=== PATIENT | male | born 1930 | race Caucasian/White ===

== ENCOUNTER 2019-03-02 17:14 | Inpatient (IN) | payer MEDICARE ==
[2019-03-02] VITALS (9 sets, daily range): BP systolic 143–174; BP diastolic 80–89
[~2019-03-02] VITALS: Ht 177.8 cm; Wt 87.2 kg
--- NOTE | 2019-03-02 18:18 | PHYS DOC ---
Past Medical History Past Medical History: A-Fib, High Cholesterol, Hypertension (CARMEN SALAZAR APRN) Past Surgical History: Other Additional Past Surgical Histo: PACEMAKER (CARMEN SALAZAR APRN) Alcohol Use: Occasionally Drug Use: None (CARMEN SALAZAR APRN) Adult General Chief Complaint Chief Complaint: ABNORMAL LABS HPI HPI Patient is a 88 year old male who was sent from his doctor's office for abnormal labs. The patient states that his hemoglobin was 6.4. Patient has been feeling dizzy, and weak over the last several days. He also states she's been having bright red blood in his stool over the last several weeks. Denies any pain at this time. Patient's states that October his hemoglobin is 12.2. The patient is on Eliquis. (CARMEN SALAZAR APRN) Review of Systems Review of Systems Constitutional: Denies fever or chills [] Eyes: Denies change in visual acuity, redness, or eye pain [] HENT: Denies nasal congestion or sore throat [] Respiratory: Denies cough or shortness of breath [] Cardiovascular: No additional information not addressed in HPI [] GI: Reports bloody stools, Denies abdominal pain, nausea, vomiting, or diarrhea [] : Denies dysuria or hematuria [] Musculoskeletal: Denies back pain or joint pain [] Integument: Denies rash or skin lesions [] Neurologic: Denies headache, focal weakness or sensory changes [] Endocrine: Denies polyuria or polydipsia [] Complete systems were reviewed and found to be within normal limits, except as documented in this note. (CARMEN SALAZAR APRN) Current Medications Current Medications Current Medications Medications (Trade) Dose Ordered Sig/Luke Start Time Stop Time Status Last Admin Dose Admin Acetaminophen (Tylenol) 500 mg PRN Q6HRS PRN 03/02/19 19:30 Fentanyl Citrate (Fentanyl 2ml Vial) 50 mcg PRN Q1HR PRN 03/02/19 19:30 03/03/19 19:29 Iohexol (Omnipaque 300 Mg/ml) 75 ml 1X ONCE 03/02/19 19:00 03/02/19 19:01 DC 03/02/19 19:18 75 ML Ondansetron HCl (Zofran) 4 mg PRN Q6HRS PRN 03/02/19 19:30 Pantoprazole Sodium (PROTONIX VIAL for IV PUSH) 40 mg 1X ONCE 03/02/19 19:00 03/02/19 19:01 DC 03/02/19 19:39 40 MG Sodium Chloride 1,000 ml @ 75 mls/hr [id number] 03/02/19 19:45 Temazepam (Restoril) 7.5 mg PRN QHS PRN 03/02/19 19:30 (CARMEN NAM DO) Allergies Allergies Allergies Coded Allergies Type Severity Reaction Last Updated Verified No Known Drug Allergies 03/02/19 No (CARMEN NAM DO) Physical Exam Physical Exam Constitutional: Well developed, well nourished, no acute distress, non-toxic appearance. [] HENT: Normocephalic, atraumatic, bilateral external ears normal, oropharynx moist, no oral exudates, nose normal. [] Eyes: PERRLA, EOMI, conjunctiva normal, no discharge. [] Neck: Normal range of motion, no tenderness, supple, no stridor. [] Cardiovascular:Heart rate regular rhythm, no murmur [] Lungs & Thorax: Bilateral breath sounds clear to auscultation [] Abdomen: Bowel sounds normal, soft, mild tenderness, no masses, no pulsatile ma sses. [] Skin: Warm, dry, no erythema, no rash. [] Back: No tenderness, no CVA tenderness. [] Extremities: No tenderness, no cyanosis, no clubbing, ROM intact, no edema. [] Neurologic: Alert and oriented X 3, normal motor function, normal sensory function, no focal deficits noted. [] Psychologic: Affect normal, judgement normal, mood normal. [] Rectal Exam was performed, no hemorrhoids noted. No shahab blood noted. Fecal occult blood sample sent to lab. (CARMEN SALAZAR APRN) Current Patient Data Vital Signs Vital Signs Date Time Temp Pulse Resp B/P (MAP) Pulse Ox O2 Delivery O2 Flow Rate FiO2 03/02/19 18:27 60 176/81 (112) 100 Room Air 03/02/19 17:25 98.5 16 98.5 (CARMEN NAM DO) Lab Values Laboratory Tests Test 03/02/19 17:55 03/02/19 18:20 White Blood Count 6.1 x10^3/uL (4.0-11.0) Red Blood Count 2.74 x10^6/uL (4.30-5.70) L Hemoglobin 6.4 g/dL (13.0-17.5) *L Hematocrit 20.1 % (39.0-53.0) *L Mean Corpuscular Volume 73 fL (79-100) L Mean Corpuscular Hemoglobin 23 pg (25-35) L Mean Corpuscular Hemoglobin Concent 32 g/dL (31-37) Red Cell Distribution Width 20.4 % (11.5-14.5) H Platelet Count 254 x10^3/uL (140-400) Neutrophils (%) (Auto) 74 % (31-73) H Lymphocytes (%) (Auto) 11 % (24-48) L Monocytes (%) (Auto) 14 % (0-9) H Eosinophils (%) (Auto) 1 % (0-3) Basophils (%) (Auto) 0 % (0-3) Neutrophils # (Auto) 4.5 x10^3/uL (1.8-7.7) Lymphocytes # (Auto) 0.7 x10^3/uL (1.0-4.8) L Monocytes # (Auto) 0.9 x10^3/uL (0.0-1.1) Eosinophils # (Auto) 0.0 x10^3/uL (0.0-0.7) Basophils # (Auto) 0.0 x10^3/uL (0.0-0.2) Platelet Estimate Adequate (ADEQUATE) Hypochromasia Slight Poikilocytosis Slight Microcytosis Mod Macrocytosis Slight Spherocytes Few Target Cells Occ Ovalocytes Occ Rouleaux Present Sodium Level 130 mmol/L (136-145) L Potassium Level 4.3 mmol/L (3.5-5.1) Chloride Level 95 mmol/L (98-107) L Carbon Dioxide Level 26 mmol/L (21-32) Anion Gap 9 (6-14) Blood Urea Nitrogen 23 mg/dL (8-26) Creatinine 1.0 mg/dL (0.7-1.3) Estimated GFR (Cockcroft-Gault) 70.8 BUN/Creatinine Ratio 23 (6-20) H Glucose Level 112 mg/dL (70-99) H Calcium Level 8.7 mg/dL (8.5-10.1) Total Bilirubin 0.5 mg/dL (0.2-1.0) Aspartate Amino Transferase (AST) 12 U/L (15-37) L Alanine Aminotransferase (ALT) 19 U/L (16-63) Alkaline Phosphatase 60 U/L (46-116) Troponin I Quantitative < 0.017 ng/mL (0.000-0.055) Total Protein 6.1 g/dL (6.4-8.2) L Albumin 3.4 g/dL (3.4-5.0) Albumin/Globulin Ratio 1.3 (1.0-1.7) Stool Occult Blood Positive (NEG) Laboratory Tests 03/02/19 17:55 Laboratory Tests 03/02/19 17:55 (CARMEN NAM DO) Lab Values Laboratory Tests Test 03/02/19 17:55 03/02/19 18:20 White Blood Count 6.1 x10^3/uL (4.0-11.0) Red Blood Count 2.74 x10^6/uL (4.30-5.70) L Hemoglobin 6.4 g/dL (13.0-17.5) *L Hematocrit 20.1 % (39.0-53.0) *L Mean Corpuscular Volume 73 fL (79-100) L Mean Corpuscular Hemoglobin 23 pg (25-35) L Mean Corpuscular Hemoglobin Concent 32 g/dL (31-37) Red Cell Distribution Width 20.4 % (11.5-14.5) H Platelet Count 254 x10^3/uL (140-400) Neutrophils (%) (Auto) 74 % (31-73) H Lymphocytes (%) (Auto) 11 % (24-48) L Monocytes (%) (Auto) 14 % (0-9) H Eosinophils (%) (Auto) 1 % (0-3) Basophils (%) (Auto) 0 % (0-3) Neutrophils # (Auto) 4.5 x10^3/uL (1.8-7.7) Lymphocytes # (Auto) 0.7 x10^3/uL (1.0-4.8) L Monocytes # (Auto) 0.9 x10^3/uL (0.0-1.1) Eosinophils # (Auto) 0.0 x10^3/uL (0.0-0.7) Basophils # (Auto) 0.0 x10^3/uL (0.0-0.2) Platelet Estimate Adequate (ADEQUATE) Hypochromasia Slight Poikilocytosis Slight Microcytosis Mod Macrocytosis Slight Spherocytes Few Target Cells Occ Ovalocytes Occ Rouleaux Present Sodium Level 130 mmol/L (136-145) L Potassium Level 4.3 mmol/L (3.5-5.1) Chloride Level 95 mmol/L (98-107) L Carbon Dioxide Level 26 mmol/L (21-32) Anion Gap 9 (6-14) Blood Urea Nitrogen 23 mg/dL (8-26) Creatinine 1.0 mg/dL (0.7-1.3) Estimated GFR (Cockcroft-Gault) 70.8 BUN/Creatinine Ratio 23 (6-20) H Glucose Level 112 mg/dL (70-99) H Calcium Level 8.7 mg/dL (8.5-10.1) Total Bilirubin 0.5 mg/dL (0.2-1.0) Aspartate Amino Transferase (AST) 12 U/L (15-37) L Alanine Aminotransferase (ALT) 19 U/L (16-63) Alkaline Phosphatase 60 U/L (46-116) Troponin I Quantitative < 0.017 ng/mL (0.000-0.055) Total Protein 6.1 g/dL (6.4-8.2) L Albumin 3.4 g/dL (3.4-5.0) Albumin/Globulin Ratio 1.3 (1.0-1.7) Stool Occult Blood Positive (NEG) Laboratory Tests 03/02/19 17:55 Laboratory Tests 03/02/19 17:55 (CARMEN SALAZAR APRN) EKG EKG [] (CARMEN SALAZAR APRN) Radiology/Procedures Radiology/Procedures []PATIENT: ISAIAS HELLERUNT: [id number]#: [id number] : 1930 LOCATION: ER AGE: 88 SEX: M EXAM STATUS: REG ER ORD. PHYSICIAN: CARMEN SALAZAR APRN REASON: rectal bleeding, abd pain PROCEDURE: CT ABD PELV W/ IV CONTRST ONLY CT SCAN OF THE ABDOMEN AND PELVIS WITH IV CONTRAST. History: Rectal bleeding Comparison:None. Procedure: Contiguous axial images of the abdomen and pelvis were performed after the administration of 75 cc of Omni 350 IV contrast and without oral contrast. CT Abdomen with contrast: Findings: There is calcification the hahn of the aorta and great vessels. 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 The sigmoid colon is redundant and there is a 6 mL length of moderate wall thickening of the proximal sigmoid colon level the mid abdomen anteriorly on the right. There is mild pleural effusions with adjacent infiltrates in the lung bases. Liver: There are a few cysts scattered throughout the liver Spleen: Unremarkable Pancreas: Unremarkable Adrenal Glands: Unremarkable Kidneys: Unremarkable There is no mass or lymphadenopathy. There is no free air. There is no free fluid. Impression: No acute findings. End Impression CT Pelvis with Contrast: Findings: The appendix is normal. The urinary bladder appears normal. There is no free fluid. There is no lymphadenopathy. Impression: 1. 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 2. Mild pleural effusions in the lung bases. 3. 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 PQRS Compliance Statement: One or more of the following individualized dose reduction techniques were utilized for this examination: 1. Automated exposure control 2. Adjustment of the mA and/or kV according to patient size 3. Use of iterative reconstruction technique Electronically signed by: Matt Cunningham III, MD (03/02/2019 7:31 PM) [facility] DICTATED and SIGNED BY: MATT CUNNINGHAM III, MD DATE: 03/02/191930 (CARMEN SALAZAR APRN) Course & Med Decision Making Course & Med Decision Making Pertinent Labs and Imaging studies reviewed. (See chart for details) Will gets labs, CT, rectal exam, and send a type and screen. Hemoglobin was 6.4 will order 1 unit of PRBC's. Discussed patient with Dr. Rodriguez who will admit patient (19:25). (CARMEN SALAZAR APRN) Dragon Disclaimer Dragon Disclaimer This electronic medical record was generated, in whole or in part, using a voice recognition dictation system. (CARMEN SALAZAR APRN) Departure Departure Impression: Primary Impression: Anemia Additional Impression: GI bleed Disposition: ADMITTED INPATIENT Admitting Physician: GINA (CARMEN SALAZAR APRN) Condition: GOOD Referrals: CRYSTAL MARINELLI MD (PCP) Attending Signature Attending Signature I have reviewed the PA/JEWEL HOLE DRILLER's note and plan of care. I was available for consultation as needed during the patient's visit in the emergency department. I agree with the clinical impression, plan, and disposition. (CARMEN NAM DO) Problem Qualifiers Primary Impression: Anemia Anemia type: unspecified type Qualified Codes: D64.9 - Anemia, unspecified Additional Impression: GI bleed GI bleed type/associated pathology: unspecified gastrointestinal hemorrhage type Qualified Codes: K92.2 - Gastrointestinal hemorrhage, unspecified CARMEN SALAZAR APRN Mar 02, 2019 18:18 CARMEN NAM DO Mar 02, 2019 19:52
[2019-03-02 18:19] LABS: BASO % 0 % (0-3); EOS % 1 % (0-3); LYMPH # 0.7 x10^3/uL (1.0-4.8); LYMPH % 11 % (24-48); MEAN CORPUSCULAR HEMOGLOBIN 23 pg (25-35); MEAN CORPUSCULAR HGB CONC 32 g/dL (31-37); MEAN CORPUSCULAR VOLUME 73 fL (79-100); MONO # 0.9 x10^3/uL (0.0-1.1); MONO % 14 % (0-9); NEUT # 4.5 x10^3/uL (1.8-7.7); NEUT % 74 % (31-73); PLATELET COUNT 254 x10^3/uL (140-400); RED BLOOD COUNT 2.74 x10^6/uL (4.30-5.70); RED CELL DISTRIBUTION WIDTH 20.4 % (11.5-14.5); WHITE BLOOD COUNT 6.1 x10^3/uL (4.0-11.0)
[2019-03-02 18:22] LABS: HEMOGLOBIN 6.4 g/dL (13.0-17.5)
[2019-03-02 18:23] LABS: HEMATOCRIT 20.1 % (39.0-53.0)
[2019-03-02 18:32] LABS: FECAL OB PT POSITIVE (NEG)
[2019-03-02 18:38] LABS: CALCIUM 8.7 mg/dL (8.5-10.1); GFR 70.8; POTASSIUM 4.3 mmol/L (3.5-5.1)
[2019-03-02 18:53] LABS: ALBUMIN 3.4 g/dL (3.4-5.0); ALBUMIN/GLOBULIN RATIO 1.3 (1.0-1.7); TOTAL BILIRUBIN 0.5 mg/dL (0.2-1.0); TOTAL PROTEIN 6.1 g/dL (6.4-8.2)
[2019-03-02] MEDS ORDERED: PANTOPRAZOLE IV PUSH 40 MG VIAL. IVP ONE (19:00)
[2019-03-02] MEDS ORDERED: IOHEXOL 300 MG/ML 100ML VIAL. IV ONE (19:00)
[2019-03-02 19:28] LABS: HYPOCHROMIA SLIGHT; MICROCYTOSIS MOD; OVALOCYTES OCC; PLT ESTIMATE ADEQUATE (ADEQUATE); POIKILOCYTOSIS SLIGHT; TARGET CELLS OCC
[2019-03-02 19:29] LABS: ROULEAUX PRESENT; SPHEROCYTES FEW
[2019-03-02] MEDS ORDERED: TEMAZEPAM 7.5 MG CAPSULE PO PRN (19:30)
[2019-03-02] MEDS ORDERED: ACETAMINOPHEN 500 MG TABLET PO PRN (19:30)
[2019-03-02] MEDS ORDERED: ONDANSETRON PF 4 MG/2 ML VIAL. IV PRN ×3 (19:30)
[2019-03-02] MEDS ORDERED: fentaNYL PF VIAL 100 MCG/2 ML VIAL IV PRN (19:30)
--- NOTE | 2019-03-02 19:34 | RAD ---
CT SCAN OF THE ABDOMEN AND PELVIS WITH IV CONTRAST. History: Rectal bleeding Comparison:None. Procedure: Contiguous axial images of the abdomen and pelvis were performed after the administration of 75 cc of Omni 350 IV contrast and without oral contrast. CT Abdomen with contrast: Findings: There is calcification the hahn of the aorta and great vessels. 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 The sigmoid colon is redundant and there is a 6 mL length of moderate wall thickening of the proximal sigmoid colon level the mid abdomen anteriorly on the right. There is mild pleural effusions with adjacent infiltrates in the lung bases. Liver: There are a few cysts scattered throughout the liver Spleen: Unremarkable Pancreas: Unremarkable Adrenal Glands: Unremarkable Kidneys: Unremarkable There is no mass or lymphadenopathy. There is no free air. There is no free fluid. Impression: No acute findings. End Impression CT Pelvis with Contrast: Findings: The appendix is normal. The urinary bladder appears normal. There is no free fluid. There is no lymphadenopathy. Impression: 1. 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 2. Mild pleural effusions in the lung bases. 3. 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 PQRS Compliance Statement: One or more of the following individualized dose reduction techniques were utilized for this examination: 1. Automated exposure control 2. Adjustment of the mA and/or kV according to patient size 3. Use of iterative reconstruction technique Electronically signed by: Baltazar Ley III, MD (03/02/2019 7:31 PM) [facility]
--- NOTE | 2019-03-02 19:37 | PDOC1 ---
History and Physical Date of Admission Date of Admission DATE: 03/02/19 TIME: 19:31 Identification/Chief Complaint Chief Complaint sent by PCP from office because of hemoglobin 6.4 Source Source: Caregiver, Chart review, Patient History of Present Illness History of Present Illness 88-year-old white male, patient and at bedside verifies with me DNR, sent by PCP for hemoglobin 6.4 Patient has been complaining of weakness, no energy, fatigue for a few weeks, last hemoglobin as per few months ago was 12 as OP Today hgb 6.4. Platelets 254. Hemoccult positive. Never had that C scope done, never saw bright red blood per rectum. Pt wishes non aggressive means (ie no cscope), based on my interaction - which is rather very appropriate given age too Sodium 130, BS okay. 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) Pulmonary: Bronchitis Past Surgical History Past Surgical History: Other (pacer 8 yrs ago) Family History Family History: Hypertension Social History Smoke: No ALCOHOL: none Drugs: None Current Problem List Problem List Problems Medical Problems: (1) Anemia Status: Acute (2) GI bleed Status: Acute Current Medications Current Medications Current Medications Iohexol (Omnipaque 300 Mg/ml) 75 ml 1X ONCE IV Last administered on 03/02/19at 19:18; Start 03/02/19 at 19:00; Stop 03/02/19 at 19:01; Status DC Pantoprazole Sodium (PROTONIX VIAL for IV PUSH) 40 mg 1X ONCE IVP ; Start 03/02/19 at 19:00; Stop 03/02/19 at 19:01; Status DC Ondansetron HCl (Zofran) 4 mg PRN Q8HRS PRN IV NAUSEA/VOMITING; Start 03/02/19 at 19:30; Stop 03/03/19 at 19:29 Fentanyl Citrate (Fentanyl 2ml Vial) 50 mcg PRN Q1HR PRN IV PAIN; Start 03/02/19 at 19:30; Stop 03/03/19 at 19:29 Allergies Allergies: Coded Allergies: No Known Drug Allergies (Unverified , 03/02/19) ROS Review of System Weak and fatigued, no energy, as per history of present illness No melena no hematochezia no hematemesis Physical Exam General: Alert, Oriented X3, Cooperative, No acute distress HEENT: Atraumatic, PERRLA, EOMI, Mucous membr. moist/pink, Other (pale palpebral conjunctivae) Lungs: Clear to auscultation, Normal air movement Heart: S1S2, RRR, no thrills, no rubs, no gallops, no murmurs, other (indwelling pacer) Cardiovascular: S1, S2 Abdomen: Normal bowel sounds, Soft, No tenderness, No hepatosplenomegaly, No masses Male Genitals Exam: normal genitalia, normal prostate Extremities: No clubbing, No cyanosis, No edema, Normal pulses, No tenderness/swelling Skin: No rashes, No breakdown, No significant lesion Neuro: Normal gait, Normal speech, Strength at 5/5 X4 ext, Normal tone, S ensation intact, Cranial nerves 3-12 NL, Reflexes 2+ Psych/Mental Status: Mental status NL, Mood NL Vitals Vitals Vital Signs Date Time Temp Pulse Resp B/P (MAP) Pulse Ox O2 Delivery O2 Flow Rate FiO2 03/02/19 18:27 60 176/81 (112) 100 Room Air 03/02/19 17:25 98.5 16 98.5 Labs Labs Laboratory Tests Test 03/02/19 17:55 03/02/19 18:20 White Blood Count 6.1 x10^3/uL (4.0-11.0) Red Blood Count 2.74 x10^6/uL (4.30-5.70) Hemoglobin 6.4 g/dL (13.0-17.5) Hematocrit 20.1 % (39.0-53.0) Mean Corpuscular Volume 73 fL (79-100) Mean Corpuscular Hemoglobin 23 pg (25-35) Mean Corpuscular Hemoglobin Concent 32 g/dL (31-37) Red Cell Distribution Width 20.4 % (11.5-14.5) Platelet Count 254 x10^3/uL (140-400) Neutrophils (%) (Auto) 74 % (31-73) Lymphocytes (%) (Auto) 11 % (24-48) Monocytes (%) (Auto) 14 % (0-9) Eosinophils (%) (Auto) 1 % (0-3) Basophils (%) (Auto) 0 % (0-3) Neutrophils # (Auto) 4.5 x10^3/uL (1.8-7.7) Lymphocytes # (Auto) 0.7 x10^3/uL (1.0-4.8) Monocytes # (Auto) 0.9 x10^3/uL (0.0-1.1) Eosinophils # (Auto) 0.0 x10^3/uL (0.0-0.7) Basophils # (Auto) 0.0 x10^3/uL (0.0-0.2) Platelet Estimate Adequate (ADEQUATE) Hypochromasia Slight Poikilocytosis Slight Microcytosis Mod Macrocytosis Slight Spherocytes Few Target Cells Occ Ovalocytes Occ Rouleau Present Sodium Level 130 mmol/L (136-145) Potassium Level 4.3 mmol/L (3.5-5.1) Chloride Level 95 mmol/L (98-107) Carbon Dioxide Level 26 mmol/L (21-32) Anion Gap 9 (6-14) Blood Urea Nitrogen 23 mg/dL (8-26) Creatinine 1.0 mg/dL (0.7-1.3) Estimated GFR (Cockcroft-Gault) 70.8 BUN/Creatinine Ratio 23 (6-20) Glucose Level 112 mg/dL (70-99) Calcium Level 8.7 mg/dL (8.5-10.1) Total Bilirubin 0.5 mg/dL (0.2-1.0) Aspartate Amino Transf (AST/SGOT) 12 U/L (15-37) Alanine Aminotransferase (ALT/SGPT) 19 U/L (16-63) Alkaline Phosphatase 60 U/L (46-116) Troponin I Quantitative < 0.017 ng/mL (0.000-0.055) Total Protein 6.1 g/dL (6.4-8.2) Albumin 3.4 g/dL (3.4-5.0) Albumin/Globulin Ratio 1.3 (1.0-1.7) Stool Occult Blood Positive (NEG) Laboratory Tests Test 03/02/19 17:55 03/02/19 18:20 White Blood Count 6.1 x10^3/uL (4.0-11.0) Red Blood Count 2.74 x10^6/uL (4.30-5.70) Hemoglobin 6.4 g/dL (13.0-17.5) Hematocrit 20.1 % (39.0-53.0) Mean Corpuscular Volume 73 fL (79-100) Mean Corpuscular Hemoglobin 23 pg (25-35) Mean Corpuscular Hemoglobin Concent 32 g/dL (31-37) Red Cell Distribution Width 20.4 % (11.5-14.5) Platelet Count 254 x10^3/uL (140-400) Neutrophils (%) (Auto) 74 % (31-73) Lymphocytes (%) (Auto) 11 % (24-48) Monocytes (%) (Auto) 14 % (0-9) Eosinophils (%) (Auto) 1 % (0-3) Basophils (%) (Auto) 0 % (0-3) Neutrophils # (Auto) 4.5 x10^3/uL (1.8-7.7) Lymphocytes # (Auto) 0.7 x10^3/uL (1.0-4.8) Monocytes # (Auto) 0.9 x10^3/uL (0.0-1.1) Eosinophils # (Auto) 0.0 x10^3/uL (0.0-0.7) Basophils # (Auto) 0.0 x10^3/uL (0.0-0.2) Platelet Estimate Adequate (ADEQUATE) Hypochromasia Slight Poikilocytosis Slight Microcytosis Mod Macrocytosis Slight Spherocytes Few Target Cells Occ Ovalocytes Occ Rouleau Present Sodium Level 130 mmol/L (136-145) Potassium Level 4.3 mmol/L (3.5-5.1) Chloride Level 95 mmol/L (98-107) Carbon Dioxide Level 26 mmol/L (21-32) Anion Gap 9 (6-14) Blood Urea Nitrogen 23 mg/dL (8-26) Creatinine 1.0 mg/dL (0.7-1.3) Estimated GFR (Cockcroft-Gault) 70.8 BUN/Creatinine Ratio 23 (6-20) Glucose Level 112 mg/dL (70-99) Calcium Level 8.7 mg/dL (8.5-10.1) Total Bilirubin 0.5 mg/dL (0.2-1.0) Aspartate Amino Transf (AST/SGOT) 12 U/L (15-37) Alanine Aminotransferase (ALT/SGPT) 19 U/L (16-63) Alkaline Phosphatase 60 U/L (46-116) Troponin I Quantitative < 0.017 ng/mL (0.000-0.055) Total Protein 6.1 g/dL (6.4-8.2) Albumin 3.4 g/dL (3.4-5.0) Albumin/Globulin Ratio 1.3 (1.0-1.7) Stool Occult Blood Positive (NEG) VTE Prophylaxis Ordered VTE Prophylaxis Devices: Contraindicated VTE Pharmacological Prophylaxi: Contraindicated Assessment/Plan Assessment/Plan Acute precipitous stop hemoglobin-hemoglobin 6.4 at the office at ER and- transfuse 1 unit for now Wepyvcpyi-ugjglrff-le aggressive means in this elderly-GI consulted Hyponatremia-normal saline 80 mL and recheck tomorrow DNR Indwelling pacer-on Eliquis, was on warfarin for the longest time but shifted to Eliquis for convenience Hypertension-controlled Dyslipidemia on statin Plan 2 MN admit Transfuse 1 unit, GI consulted Conservative measures DNR Hold Eliquis We are waiting for home meds from home it includes a statin and blood pressure med Normal saline for the 130 sodium Conservative measures in this elderly High fall risk Okay for clear liquid diet Seen at eR DNR GEO DARLING MD Mar 02, 2019 19:37
[2019-03-02] MEDS: IV NORMAL SALINE 1000ML BAG 1,000 ML IV SCH (20:39)
[2019-03-03 03:05] VITALS: BP 162/75
[2019-03-03] MEDS: IV NORMAL SALINE 1000ML BAG 1,000 ML IV SCH (04:39)
[2019-03-03 06:13] LABS: HEMATOCRIT 22.1 % (39.0-53.0); HEMOGLOBIN 7.1 g/dL (13.0-17.5)
--- NOTE | 2019-03-03 06:55 | EKG ---
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
[2019-03-03 07:00] VITALS: BP 177/84
--- NOTE | 2019-03-03 08:25 | NUR ---
SS following for discharge planning. SS reviewed pt chart. Pt is from home with spouse and is currently on room air. PT/OT ordered. SS will await PT/OT evaluations and recommendations and will proceed accordingly with discharge planning.
[2019-03-03] MEDS ORDERED: FURO20TA3 PO (08:30)
[2019-03-03] MEDS ORDERED: DOXA8TAB2 PO (08:30)
[2019-03-03] MEDS ORDERED: LEVO150T5 PO (08:30)
[2019-03-03] MEDS ORDERED: ASPI81TA50 PO (08:30)
[2019-03-03] MEDS ORDERED: LISI2.5T PO (08:30)
[2019-03-03] MEDS ORDERED: MULT1TAB52 PO (08:30)
[2019-03-03] MEDS ORDERED: SPIR25TA PO (08:30)
[2019-03-03] MEDS ORDERED: ATOR20TA58 PO (08:30)
[2019-03-03] MEDS ORDERED: APIX5TAB PO (08:30)
--- NOTE | 2019-03-03 09:20 | PDOC ---
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 Mild pleural effusions in the lung bases. 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 Plan 2 MN admit Transfuse 1 unit, GI consulted, REVIEWED DNR Hold Eliquis statin and blood pressure med 130 sodium Conservative measures in this elderly High fall risk Okay for clear liquid diet DNR PALLIATIVE CARE CONSULT CBC, BMP IN AM 38 MIN PT EXAM, CHART REVIEW, > 50% OF TIME SPENT WITH EXAM, CHART REVIEW, PT CARE COORDINATION Vitals Vitals Vital Signs Date Time Temp Pulse Resp B/P (MAP) Pulse Ox O2 Delivery O2 Flow Rate FiO2 03/03/19 07:00 98.6 60 18 177/84 (115) 98 Room Air 98.6 Physical Exam General: Alert, Oriented X3, Cooperative, No acute distress, mild distress Lungs: Clear Abdomen: Normal bowel sounds, Soft, No tenderness, No hepatosplenomegaly, No masses Extremities: No clubbing, No cyanosis, No edema, Normal pulses, No tenderness/swelling Skin: No rashes, No breakdown, No significant lesion Labs LABS Laboratory Tests Test 03/02/19 17:55 03/02/19 18:20 03/03/19 05:45 White Blood Count 6.1 x10^3/uL (4.0-11.0) Red Blood Count 2.74 x10^6/uL (4.30-5.70) Hemoglobin 6.4 g/dL (13.0-17.5) 7.1 g/dL (13.0-17.5) Hematocrit 20.1 % (39.0-53.0) 22.1 % (39.0-53.0) Mean Corpuscular Volume 73 fL (79-100) Mean Corpuscular Hemoglobin 23 pg (25-35) Mean Corpuscular Hemoglobin Concent 32 g/dL (31-37) 32 g/dL (31-37) Red Cell Distribution Width 20.4 % (11.5-14.5) Platelet Count 254 x10^3/uL (140-400) Neutrophils (%) (Auto) 74 % (31-73) Lymphocytes (%) (Auto) 11 % (24-48) Monocytes (%) (Auto) 14 % (0-9) Eosinophils (%) (Auto) 1 % (0-3) Basophils (%) (Auto) 0 % (0-3) Neutrophils # (Auto) 4.5 x10^3/uL (1.8-7.7) Lymphocytes # (Auto) 0.7 x10^3/uL (1.0-4.8) Monocytes # (Auto) 0.9 x10^3/uL (0.0-1.1) Eosinophils # (Auto) 0.0 x10^3/uL (0.0-0.7) Basophils # (Auto) 0.0 x10^3/uL (0.0-0.2) Platelet Estimate Adequate (ADEQUATE) Hypochromasia Slight Poikilocytosis Slight Microcytosis Mod Macrocytosis Slight Spherocytes Few Target Cells Occ Ovalocytes Occ Rouleau Present Sodium Level 130 mmol/L (136-145) Potassium Level 4.3 mmol/L (3.5-5.1) Chloride Level 95 mmol/L (98-107) Carbon Dioxide Level 26 mmol/L (21-32) Anion Gap 9 (6-14) Blood Urea Nitrogen 23 mg/dL (8-26) Creatinine 1.0 mg/dL (0.7-1.3) Estimated GFR (Cockcroft-Gault) 70.8 BUN/Creatinine Ratio 23 (6-20) Glucose Level 112 mg/dL (70-99) Calcium Level 8.7 mg/dL (8.5-10.1) Iron Level 7 ug/dL (65-175) Total Iron Binding Capacity 415 ug/dL (250-450) Iron Saturation 2 % (15-34) Ferritin 9 ng/mL (26-388) Total Bilirubin 0.5 mg/dL (0.2-1.0) Aspartate Amino Transf (AST/SGOT) 12 U/L (15-37) Alanine Aminotransferase (ALT/SGPT) 19 U/L (16-63) Alkaline Phosphatase 60 U/L (46-116) Troponin I Quantitative < 0.017 ng/mL (0.000-0.055) Total Protein 6.1 g/dL (6.4-8.2) Albumin 3.4 g/dL (3.4-5.0) Albumin/Globulin Ratio 1.3 (1.0-1.7) Stool Occult Blood Positive (NEG) Assessment and Plan Assessmemt and Plan Problems Medical Problems: (1) Anemia Status: Acute (2) GI bleed Status: Acute Comment Review of Relevant I have reviewed the following items shira (where applicable) has been applied. Labs Laboratory Tests Test 03/02/19 17:55 03/02/19 18:20 03/03/19 05:45 White Blood Count 6.1 x10^3/uL (4.0-11.0) Red Blood Count 2.74 x10^6/uL (4.30-5.70) Hemoglobin 6.4 g/dL (13.0-17.5) 7.1 g/dL (13.0-17.5) Hematocrit 20.1 % (39.0-53.0) 22.1 % (39.0-53.0) Mean Corpuscular Volume 73 fL (79-100) Mean Corpuscular Hemoglobin 23 pg (25-35) Mean Corpuscular Hemoglobin Concent 32 g/dL (31-37) 32 g/dL (31-37) Red Cell Distribution Width 20.4 % (11.5-14.5) Platelet Count 254 x10^3/uL (140-400) Neutrophils (%) (Auto) 74 % (31-73) Lymphocytes (%) (Auto) 11 % (24-48) Monocytes (%) (Auto) 14 % (0-9) Eosinophils (%) (Auto) 1 % (0-3) Basophils (%) (Auto) 0 % (0-3) Neutrophils # (Auto) 4.5 x10^3/uL (1.8-7.7) Lymphocytes # (Auto) 0.7 x10^3/uL (1.0-4.8) Monocytes # (Auto) 0.9 x10^3/uL (0.0-1.1) Eosinophils # (Auto) 0.0 x10^3/uL (0.0-0.7) Basophils # (Auto) 0.0 x10^3/uL (0.0-0.2) Platelet Estimate Adequate (ADEQUATE) Hypochromasia Slight Poikilocytosis Slight Microcytosis Mod Macrocytosis Slight Spherocytes Few Target Cells Occ Ovalocytes Occ Rouleau Present Sodium Level 130 mmol/L (136-145) Potassium Level 4.3 mmol/L (3.5-5.1) Chloride Level 95 mmol/L (98-107) Carbon Dioxide Level 26 mmol/L (21-32) Anion Gap 9 (6-14) Blood Urea Nitrogen 23 mg/dL (8-26) Creatinine 1.0 mg/dL (0.7-1.3) Estimated GFR (Cockcroft-Gault) 70.8 BUN/Creatinine Ratio 23 (6-20) Glucose Level 112 mg/dL (70-99) Calcium Level 8.7 mg/dL (8.5-10.1) Iron Level 7 ug/dL (65-175) Total Iron Binding Capacity 415 ug/dL (250-450) Iron Saturation 2 % (15-34) Ferritin 9 ng/mL (26-388) Total Bilirubin 0.5 mg/dL (0.2-1.0) Aspartate Amino Transf (AST/SGOT) 12 U/L (15-37) Alanine Aminotransferase (ALT/SGPT) 19 U/L (16-63) Alkaline Phosphatase 60 U/L (46-116) Troponin I Quantitative < 0.017 ng/mL (0.000-0.055) Total Protein 6.1 g/dL (6.4-8.2) Albumin 3.4 g/dL (3.4-5.0) Albumin/Globulin Ratio 1.3 (1.0-1.7) Stool Occult Blood Positive (NEG) Laboratory Tests Test 03/02/19 17:55 03/02/19 18:20 03/03/19 05:45 White Blood Count 6.1 x10^3/uL (4.0-11.0) Red Blood Count 2.74 x10^6/uL (4.30-5.70) Hemoglobin 6.4 g/dL (13.0-17.5) 7.1 g/dL (13.0-17.5) Hematocrit 20.1 % (39.0-53.0) 22.1 % (39.0-53.0) Mean Corpuscular Volume 73 fL (79-100) Mean Corpuscular Hemoglobin 23 pg (25-35) Mean Corpuscular Hemoglobin Concent 32 g/dL (31-37) 32 g/dL (31-37) Red Cell Distribution Width 20.4 % (11.5-14.5) Platelet Count 254 x10^3/uL (140-400) Neutrophils (%) (Auto) 74 % (31-73) Lymphocytes (%) (Auto) 11 % (24-48) Monocytes (%) (Auto) 14 % (0-9) Eosinophils (%) (Auto) 1 % (0-3) Basophils (%) (Auto) 0 % (0-3) Neutrophils # (Auto) 4.5 x10^3/uL (1.8-7.7) Lymphocytes # (Auto) 0.7 x10^3/uL (1.0-4.8) Monocytes # (Auto) 0.9 x10^3/uL (0.0-1.1) Eosinophils # (Auto) 0.0 x10^3/uL (0.0-0.7) Basophils # (Auto) 0.0 x10^3/uL (0.0-0.2) Platelet Estimate Adequate (ADEQUATE) Hypochromasia Slight Poikilocytosis Slight Microcytosis Mod Macrocytosis Slight Spherocytes Few Target Cells Occ Ovalocytes Occ Rouleau Present Sodium Level 130 mmol/L (136-145) Potassium Level 4.3 mmol/L (3.5-5.1) Chloride Level 95 mmol/L (98-107) Carbon Dioxide Level 26 mmol/L (21-32) Anion Gap 9 (6-14) Blood Urea Nitrogen 23 mg/dL (8-26) Creatinine 1.0 mg/dL (0.7-1.3) Estimated GFR (Cockcroft-Gault) 70.8 BUN/Creatinine Ratio 23 (6-20) Glucose Level 112 mg/dL (70-99) Calcium Level 8.7 mg/dL (8.5-10.1) Iron Level 7 ug/dL (65-175) Total Iron Binding Capacity 415 ug/dL (250-450) Iron Saturation 2 % (15-34) Ferritin 9 ng/mL (26-388) Total Bilirubin 0.5 mg/dL (0.2-1.0) Aspartate Amino Transf (AST/SGOT) 12 U/L (15-37) Alanine Aminotransferase (ALT/SGPT) 19 U/L (16-63) Alkaline Phosphatase 60 U/L (46-116) Troponin I Quantitative < 0.017 ng/mL (0.000-0.055) Total Protein 6.1 g/dL (6.4-8.2) Albumin 3.4 g/dL (3.4-5.0) Albumin/Globulin Ratio 1.3 (1.0-1.7) Stool Occult Blood Positive (NEG) Medications Current Medications Iohexol (Omnipaque 300 Mg/ml) 75 ml 1X ONCE IV Last administered on 03/02/19at 19:18; Start 03/02/19 at 19:00; Stop 03/02/19 at 19:01; Status DC Pantoprazole Sodium (PROTONIX VIAL for IV PUSH) 40 mg 1X ONCE IVP Last administered on 03/02/19at 19:39; Start 03/02/19 at 19:00; Stop 03/02/19 at 19:01; Status DC Ondansetron HCl (Zofran) 4 mg PRN Q8HRS PRN IV NAUSEA/VOMITING; Start 03/02/19 at 19:30; Stop 03/02/19 at 19:31; Status DC Fentanyl Citrate (Fentanyl 2ml Vial) 50 mcg PRN Q1HR PRN IV PAIN; Start 03/02/19 at 19:30; Stop 03/03/19 at 19:29 Ondansetron HCl (Zofran) 4 mg PRN Q6HRS PRN IV NAUSEA/VOMITING; Start 03/02/19 at 19:30 Acetaminophen (Tylenol) 500 mg PRN Q6HRS PRN PO MILD PAIN / TEMP Last administered on 03/03/19at 04:37; Start 03/02/19 at 19:30 Temazepam (Restoril) 7.5 mg PRN QHS PRN PO INSOMNIA; Start 03/02/19 at 19:30 Ondansetron HCl (Zofran) 4 mg PRN Q6HRS PRN IV NAUSEA/VOMITING; Start 03/02/19 at 19:30 Sodium Chloride 1,000 ml @ 75 mls/hr [id number] IV Last administered on 03/02/19at 20:39; Start 03/02/19 at 19:45 Active Scripts Active Reported Furosemide 20 Mg Tablet 20 Mg PO PRN DAILY PRN Aldactone (Spironolactone) 25 Mg Tablet 25 Mg PO DAILY Multivitamins (Multivitamin) 1 Each Tablet 1 Tab PO DAILY Lisinopril 2.5 Mg Tablet 2.5 Mg PO HS Levothyroxine Sodium 150 Mcg Tablet 150 Mcg PO DAILYAC Cardura (Doxazosin Mesylate) 8 Mg Tablet 8 Mg PO DAILY Atorvastatin Calcium 20 Mg Tablet 20 Mg PO HS Aspir-Low (Aspirin) 81 Mg Tablet.dr 81 Mg PO DAILY Eliquis (Apixaban) 5 Mg Tablet 5 Mg PO BID Vitals/I & O Vital Sign - Last 24 Hours 03/02/19 03/02/19 03/02/19 03/02/19 17:25 17:25 17:27 17:57 Temp 98.5 98.5 Pulse 60 62 60 60 Resp 16 B/P (MAP) 142/65 (90) 142/65 (90) 150/67 (94) 160/90 (113) Pulse Ox 98 99 98 O2 Delivery Room Air Room Air Room Air 03/02/19 03/02/19 03/02/19 03/02/19 18:27 18:57 19:24 19:51 Pulse 60 60 58 60 Resp 20 B/P (MAP) 176/81 (112) 164/93 (116) 125/82 (96) 175/77 (109) Pulse Ox 100 99 99 97 O2 Delivery Room Air Room Air Room Air Room Air 03/02/19 03/02/19 03/02/19 03/02/19 20:10 20:20 20:26 20:27 Temp 98.3 98.3 Pulse 60 60 60 60 Resp 15 26 24 27 B/P (MAP) 152/69 (96) 168/80 (109) 174/89 (117) 174/89 Pulse Ox 97 99 99 O2 Delivery Room Air Room Air Room Air 03/02/19 03/02/19 03/02/19 03/02/19 20:31 20:32 20:36 20:41 Pulse 60 59 60 60 Resp 25 23 25 25 B/P (MAP) 168/84 (112) 168/84 169/81 (110) 165/80 (108) Pulse Ox 98 97 97 O2 Delivery Room Air Room Air Room Air 03/02/19 03/02/19 03/02/19 03/02/19 20:42 20:46 20:51 20:56 Temp 98.3 98.3 Pulse 60 60 60 60 Resp 24 27 23 23 B/P (MAP) 165/80 163/80 (107) 169/82 (111) 161/79 (106) Pulse Ox 98 98 98 O2 Delivery Room Air Room Air Room Air 03/02/19 03/02/19 03/02/19 03/02/19 21:00 21:01 21:01 21:06 Temp 98.5 98.5 Pulse 60 60 Resp 28 28 B/P (MAP) 143/80 (101) 165/87 (113) 160/83 160/83 (108) Pulse Ox 98 98 99 O2 Delivery Room Air Room Air Room Air 03/02/19 03/02/19 03/02/19 03/02/19 21:10 21:30 22:00 22:59 Temp 98.5 98.6 98.3 98.5 98.6 98.3 Pulse 59 60 59 Resp 18 19 B/P (MAP) 156/85 (108) 165/80 (108) 159/83 (108) Pulse Ox 98 97 98 O2 Delivery Room Air Room Air Room Air Room Air 03/02/19 03/03/19 03/03/19 23:00 03:05 07:00 Temp 98.6 99.7 98.6 98.6 99.7 98.6 Pulse 60 60 60 Resp 18 18 B/P (MAP) 159/83 (108) 162/75 (104) 177/84 (115) Pulse Ox 97 96 98 O2 Delivery Room Air Room Air Room Air Intake and Output 03/02/19 03/02/19 03/03/19 14:59 22:59 06:59 Intake Total 0 ml Output Total 100 ml Balance -100 ml KARLIE MESSINA MD Mar 03, 2019 09:20
--- NOTE | 2019-03-03 09:23 | PDOC2 ---
GI CONSULT Reason For Consult: Anemia, rectal bleeding HPI: HPI: 88 y/o male sent to ER by PCP. 2 week h/o fatigue, weakness, dizziness, and seeing bright red blood w/ stools. Noted w/ VU - Hgb 6.4 and now 7.1 s/p transfusion 1 unit pRBCs, fecal occult positive. 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 H/o A fib on ASA and Eliquis. CT A/P notes apple core lesion in sigmoid colon. No previous EGD or colonoscopy. Says he has discussed w/ surgeon this morning and does not wish to pursue further evaluation w/ surgery or colonoscopy. No reflux/heartburn, dysphagia, n/v, early satiety, change in appetite, abd pain, diarrhea, constipation, melena, or weight loss. No previous EGD. No GB, liver, or pancreas history. Would like to eat. PMH: PMH: A Fib, HTN, HLD, skin cancer bilateral cataract removal, pacemaker FH: Family History: Cancer (breast) Social History: Smoke: No ALCOHOL: none Drugs: None ROS: GEN: +fatigue HEENT: Denies blurred vision, sore throat CV: Denies chest pain RESP: Denies shortness of air, cough GI: Per HPI : Denies hematuria, dysuria ENDO: Denies weight changes NEURO: +dizziness MSK: Denies weakness, joint pain/swelling SKIN: Denies jaundice, pruritus Vitals: Vitals: Vital Signs Date Time Temp Pulse Resp B/P (MAP) Pulse Ox O2 Delivery O2 Flow Rate FiO2 03/03/19 07:00 98.6 60 18 177/84 (115) 98 Room Air 98.6 Labs: Labs: Laboratory Tests Test 03/02/19 17:55 03/02/19 18:20 03/03/19 05:45 White Blood Count 6.1 x10^3/uL (4.0-11.0) Red Blood Count 2.74 x10^6/uL (4.30-5.70) Hemoglobin 6.4 g/dL (13.0-17.5) 7.1 g/dL (13.0-17.5) Hematocrit 20.1 % (39.0-53.0) 22.1 % (39.0-53.0) Mean Corpuscular Volume 73 fL (79-100) Mean Corpuscular Hemoglobin 23 pg (25-35) Mean Corpuscular Hemoglobin Concent 32 g/dL (31-37) 32 g/dL (31-37) Red Cell Distribution Width 20.4 % (11.5-14.5) Platelet Count 254 x10^3/uL (140-400) Neutrophils (%) (Auto) 74 % (31-73) Lymphocytes (%) (Auto) 11 % (24-48) Monocytes (%) (Auto) 14 % (0-9) Eosinophils (%) (Auto) 1 % (0-3) Basophils (%) (Auto) 0 % (0-3) Neutrophils # (Auto) 4.5 x10^3/uL (1.8-7.7) Lymphocytes # (Auto) 0.7 x10^3/uL (1.0-4.8) Monocytes # (Auto) 0.9 x10^3/uL (0.0-1.1) Eosinophils # (Auto) 0.0 x10^3/uL (0.0-0.7) Basophils # (Auto) 0.0 x10^3/uL (0.0-0.2) Platelet Estimate Adequate (ADEQUATE) Hypochromasia Slight Poikilocytosis Slight Microcytosis Mod Macrocytosis Slight Spherocytes Few Target Cells Occ Ovalocytes Occ Rouleau Present Sodium Level 130 mmol/L (136-145) Potassium Level 4.3 mmol/L (3.5-5.1) Chloride Level 95 mmol/L (98-107) Carbon Dioxide Level 26 mmol/L (21-32) Anion Gap 9 (6-14) Blood Urea Nitrogen 23 mg/dL (8-26) Creatinine 1.0 mg/dL (0.7-1.3) Estimated GFR (Cockcroft-Gault) 70.8 BUN/Creatinine Ratio 23 (6-20) Glucose Level 112 mg/dL (70-99) Calcium Level 8.7 mg/dL (8.5-10.1) Iron Level 7 ug/dL (65-175) Total Iron Binding Capacity 415 ug/dL (250-450) Iron Saturation 2 % (15-34) Ferritin 9 ng/mL (26-388) Total Bilirubin 0.5 mg/dL (0.2-1.0) Aspartate Amino Transf (AST/SGOT) 12 U/L (15-37) Alanine Aminotransferase (ALT/SGPT) 19 U/L (16-63) Alkaline Phosphatase 60 U/L (46-116) Troponin I Quantitative < 0.017 ng/mL (0.000-0.055) Total Protein 6.1 g/dL (6.4-8.2) Albumin 3.4 g/dL (3.4-5.0) Albumin/Globulin Ratio 1.3 (1.0-1.7) Stool Occult Blood Positive (NEG) Allergies: Coded Allergies: No Known Drug Allergies (Unverified , 03/02/19) Medications: Current Medications Medications (Trade) Dose Ordered Sig/Luke Route PRN Reason Start Time Stop Time Status Last Admin Dose Admin Iohexol (Omnipaque 300 Mg/ml) 75 ml 1X ONCE IV 03/02/19 19:00 03/02/19 19:01 DC 03/02/19 19:18 Pantoprazole Sodium (PROTONIX VIAL for IV PUSH) 40 mg 1X ONCE IVP 03/02/19 19:00 03/02/19 19:01 DC 03/02/19 19:39 Acetaminophen (Tylenol) 500 mg PRN Q6HRS PRN PO MILD PAIN / TEMP 03/02/19 19:30 03/03/19 04:37 Sodium Chloride 1,000 ml @ 75 mls/hr [id number] IV 03/02/19 19:45 03/02/19 20:39 Imaging: Imaging: CT A/P w/ IV contrast Findings: There is calcification the hahn of the aorta and great vessels. 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 The sigmoid colon is redundant and there is a 6 mL length of moderate wall thickening of the proximal sigmoid colon level the mid abdomen anteriorly on the right. There is mild pleural effusions with adjacent infiltrates in the lung bases. Liver: There are a few cysts scattered throughout the liver Spleen: Unremarkable Pancreas: Unremarkable Adrenal Glands: Unremarkable Kidneys: Unremarkable There is no mass or lymphadenopathy. There is no free air. There is no free fluid. Impression: No acute findings. CT Pelvis with Contrast: Findings: The appendix is normal. The urinary bladder appears normal. There is no free fluid. There is no lymphadenopathy. Impression: 1. 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 2. Mild pleural effusions in the lung bases. 3. 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 PE: GEN: NAD HEENT: Atraumatic, PERRL LUNGS: CTAB HEART: RRR ABD: NABS, S/ND/NT EXTREMITY: No edema SKIN: No rashes, no jaundice NEURO/PSYCH: A & O �3 A/P: A/P: Fatigue, weakness, dizziness, rectal bleeding VU Abnormal CT w/ apple core lesion in sigmoid CRC screen - none H/o A Fib on Eliquis and ASA -- Pt does not wish to pursue colonoscopy and/or surgery. Dr. Long to see later. Okay to eat today per GI. ?palliative care discussion requests another unit of blood - will order. TEMO URENA Mar 03, 2019 09:23
[2019-03-03] MEDS ORDERED: POLYETHYLENE GLYCOL 3350 17 GM PACKET. PO PRN (09:45)
[2019-03-03] MEDS ORDERED: FUROSEMIDE 20 MG TABLET PO PRN (10:00)
[2019-03-03] MEDS ORDERED: FERROUS SULFATE 325 MG TABLET. PO SCH (10:00)
[2019-03-03] MEDS ORDERED: PANTOPRAZOLE 40 MG TABLET.DR. PO SCH (10:00)
[2019-03-03 11:00] VITALS: BP 121/47
[2019-03-03] MEDS ORDERED: MULTIVITAMIN with MINERAL TABLET. PO SCH (11:00)
[2019-03-03] MEDS ORDERED: LEVOTHYROXINE 150 MCG TABLET PO SCH (11:00)
[2019-03-03] MEDS ORDERED: ASPIRIN ENTERIC COATED 81 MG TABLET.DR. PO SCH (11:00)
[2019-03-03] MEDS ORDERED: DOXAZOSIN MESYLATE 4 MG TABLET. PO SCH (11:00)
[2019-03-03] MEDS ORDERED: SPIRONOLACTONE 25 MG TABLET PO SCH (11:00)
[2019-03-03] MEDS ORDERED: APIXABAN 5 MG TABLET. PO SCH (11:00)
[2019-03-03 11:45] VITALS: BP 130/65
--- NOTE | 2019-03-03 13:04 | PDOC2 ---
CONSULT Date of Consult Date of Consult DATE: 03/03/19 TIME: 12:59 Reason for Consult Reason for Consult: anemia, colon mass Referring Physician Referring Physician: Dr. Rodriguez Identification/Chief Complaint Chief Complaint fatigue Source Source: Caregiver, Chart review, Patient History of Present Illness Reason for Visit: 88 yo M has developed gradual increasing difficulty with fatigue. Reported feeling OK if sitting, but developed fatigue and lightheadedness with activity. Denies N/V. Has been eating well. Weight has been stable. Has noted some blood in stool. Accompanied by supportive and sons. 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) Pulmonary: Bronchitis Past Surgical History Past Surgical History: Pacemaker, Other (pacer 8 yrs ago) Family History Family History: Hypertension Social History No ALCOHOL: none Drugs: None Current Problem List Problem List Problems Medical Problems: (1) Anemia Status: Acute (2) GI bleed Status: Acute Current Medications Current Medications Current Medications Iohexol (Omnipaque 300 Mg/ml) 75 ml 1X ONCE IV Last administered on 03/02/19at 19:18; Start 03/02/19 at 19:00; Stop 03/02/19 at 19:01; Status DC Pantoprazole Sodium (PROTONIX VIAL for IV PUSH) 40 mg 1X ONCE IVP Last administered on 03/02/19at 19:39; Start 03/02/19 at 19:00; Stop 03/02/19 at 19:01; Status DC Ondansetron HCl (Zofran) 4 mg PRN Q8HRS PRN IV NAUSEA/VOMITING; Start 03/02/19 at 19:30; Stop 03/02/19 at 19:31; Status DC Fentanyl Citrate (Fentanyl 2ml Vial) 50 mcg PRN Q1HR PRN IV PAIN; Start 03/02/19 at 19:30; Stop 03/03/19 at 19:29 Ondansetron HCl (Zofran) 4 mg PRN Q6HRS PRN IV NAUSEA/VOMITING; Start 03/02/19 at 19:30 Acetaminophen (Tylenol) 500 mg PRN Q6HRS PRN PO MILD PAIN / TEMP Last administered on 03/03/19at 04:37; Start 03/02/19 at 19:30 Temazepam (Restoril) 7.5 mg PRN QHS PRN PO INSOMNIA; Start 03/02/19 at 19:30 Ondansetron HCl (Zofran) 4 mg PRN Q6HRS PRN IV NAUSEA/VOMITING; Start 03/02/19 at 19:30 Sodium Chloride 1,000 ml @ 75 mls/hr [id number] IV Last administered on 03/02/19at 20:39; Start 03/02/19 at 19:45; Stop 03/03/19 at 10:16; Status DC Ferrous Sulfate (Feosol) 325 mg DAILYWBKFT PO Last administered on 03/03/19at 10:44; Start 03/03/19 at 10:00 Polyethylene Glycol (miraLAX PACKET) 17 gm PRN DAILY PRN PO CONSTIPATION; Sta rt 03/03/19 at 09:45 Pantoprazole Sodium (Protonix) 40 mg DAILYAC PO Last administered on 03/03/19at 10:45; Start 03/03/19 at 10:00 Apixaban (Eliquis) 5 mg BID PO ; Start 03/03/19 at 11:00; Stop 03/03/19 at 11:00; Status DC Aspirin (Ecotrin) 81 mg DAILY PO Last administered on 03/03/19at 10:45; Start 03/03/19 at 11:00 Atorvastatin Calcium (Lipitor) 20 mg HS PO ; Start 03/03/19 at 21:00 Furosemide (Lasix) 20 mg PRN DAILY PRN PO edema Last administered on 03/03/19at 10:46; Start 03/03/19 at 10:00 Doxazosin Mesylate (Cardura) 8 mg DAILY PO Last administered on 03/03/19at 10:46; Start 03/03/19 at 11:00 Levothyroxine Sodium (Synthroid) 150 mcg DAILY06 PO Last administered on 03/03/19at 10:44; Start 03/03/19 at 11:00 Lisinopril (Prinivil) 2.5 mg QHS PO ; Start 03/03/19 at 21:00 Multivitamins (Thera M Plus) 1 tab DAILY PO ; Start 03/03/19 at 11:00 Spironolactone (Aldactone) 25 mg DAILY PO Last administered on 03/03/19at 10:44; Start 03/03/19 at 11:00 Active Scripts Active Reported Furosemide 20 Mg Tablet 20 Mg PO PRN DAILY PRN Aldactone (Spironolactone) 25 Mg Tablet 25 Mg PO DAILY Multivitamins (Multivitamin) 1 Each Tablet 1 Tab PO DAILY Lisinopril 2.5 Mg Tablet 2.5 Mg PO HS Levothyroxine Sodium 150 Mcg Tablet 150 Mcg PO DAILYAC Cardura (Doxazosin Mesylate) 8 Mg Tablet 8 Mg PO DAILY Atorvastatin Calcium 20 Mg Tablet 20 Mg PO HS Aspir-Low (Aspirin) 81 Mg Tablet.dr 81 Mg PO DAILY Eliquis (Apixaban) 5 Mg Tablet 5 Mg PO BID Allergies Allergies: Coded Allergies: No Known Drug Allergies (Unverified , 03/02/19) ROS General: YES: Fatigue Physical Exam General: Alert, Oriented X3, Cooperative, No acute distress HEENT: Atraumatic, EOMI Lungs: Normal air movement Abdomen: Soft, No tenderness, No masses Extremities: No clubbing, No cyanosis Skin: No rashes, No breakdown Neuro: Normal speech, Sensation intact Psych/Mental Status: Mental status NL, Mood NL Vitals VITALS Vital Signs Date Time Temp Pulse Resp B/P (MAP) Pulse Ox O2 Delivery O2 Flow Rate FiO2 03/03/19 11:45 98.0 66 24 130/65 98.0 03/03/19 11:00 99 Room Air Labs Labs Laboratory Tests Test 03/02/19 17:55 03/02/19 18:20 03/03/19 05:45 White Blood Count 6.1 x10^3/uL (4.0-11.0) Red Blood Count 2.74 x10^6/uL (4.30-5.70) Hemoglobin 6.4 g/dL (13.0-17.5) 7.1 g/dL (13.0-17.5) Hematocrit 20.1 % (39.0-53.0) 22.1 % (39.0-53.0) Mean Corpuscular Volume 73 fL (79-100) Mean Corpuscular Hemoglobin 23 pg (25-35) Mean Corpuscular Hemoglobin Concent 32 g/dL (31-37) 32 g/dL (31-37) Red Cell Distribution Width 20.4 % (11.5-14.5) Platelet Count 254 x10^3/uL (140-400) Neutrophils (%) (Auto) 74 % (31-73) Lymphocytes (%) (Auto) 11 % (24-48) Monocytes (%) (Auto) 14 % (0-9) Eosinophils (%) (Auto) 1 % (0-3) Basophils (%) (Auto) 0 % (0-3) Neutrophils # (Auto) 4.5 x10^3/uL (1.8-7.7) Lymphocytes # (Auto) 0.7 x10^3/uL (1.0-4.8) Monocytes # (Auto) 0.9 x10^3/uL (0.0-1.1) Eosinophils # (Auto) 0.0 x10^3/uL (0.0-0.7) Basophils # (Auto) 0.0 x10^3/uL (0.0-0.2) Platelet Estimate Adequate (ADEQUATE) Hypochromasia Slight Poikilocytosis Slight Microcytosis Mod Macrocytosis Slight Spherocytes Few Target Cells Occ Ovalocytes Occ Rouleau Present Sodium Level 130 mmol/L (136-145) Potassium Level 4.3 mmol/L (3.5-5.1) Chloride Level 95 mmol/L (98-107) Carbon Dioxide Level 26 mmol/L (21-32) Anion Gap 9 (6-14) Blood Urea Nitrogen 23 mg/dL (8-26) Creatinine 1.0 mg/dL (0.7-1.3) Estimated GFR (Cockcroft-Gault) 70.8 BUN/Creatinine Ratio 23 (6-20) Glucose Level 112 mg/dL (70-99) Calcium Level 8.7 mg/dL (8.5-10.1) Iron Level 7 ug/dL (65-175) Total Iron Binding Capacity 415 ug/dL (250-450) Iron Saturation 2 % (15-34) Ferritin 9 ng/mL (26-388) Total Bilirubin 0.5 mg/dL (0.2-1.0) Aspartate Amino Transf (AST/SGOT) 12 U/L (15-37) Alanine Aminotransferase (ALT/SGPT) 19 U/L (16-63) Alkaline Phosphatase 60 U/L (46-116) Troponin I Quantitative < 0.017 ng/mL (0.000-0.055) Total Protein 6.1 g/dL (6.4-8.2) Albumin 3.4 g/dL (3.4-5.0) Albumin/Globulin Ratio 1.3 (1.0-1.7) Stool Occult Blood Positive (NEG) Laboratory Tests Test 03/02/19 17:55 03/02/19 18:20 03/03/19 05:45 White Blood Count 6.1 x10^3/uL (4.0-11.0) Red Blood Count 2.74 x10^6/uL (4.30-5.70) Hemoglobin 6.4 g/dL (13.0-17.5) 7.1 g/dL (13.0-17.5) Hematocrit 20.1 % (39.0-53.0) 22.1 % (39.0-53.0) Mean Corpuscular Volume 73 fL (79-100) Mean Corpuscular Hemoglobin 23 pg (25-35) Mean Corpuscular Hemoglobin Concent 32 g/dL (31-37) 32 g/dL (31-37) Red Cell Distribution Width 20.4 % (11.5-14.5) Platelet Count 254 x10^3/uL (140-400) Neutrophils (%) (Auto) 74 % (31-73) Lymphocytes (%) (Auto) 11 % (24-48) Monocytes (%) (Auto) 14 % (0-9) Eosinophils (%) (Auto) 1 % (0-3) Basophils (%) (Auto) 0 % (0-3) Neutrophils # (Auto) 4.5 x10^3/uL (1.8-7.7) Lymphocytes # (Auto) 0.7 x10^3/uL (1.0-4.8) Monocytes # (Auto) 0.9 x10^3/uL (0.0-1.1) Eosinophils # (Auto) 0.0 x10^3/uL (0.0-0.7) Basophils # (Auto) 0.0 x10^3/uL (0.0-0.2) Platelet Estimate Adequate (ADEQUATE) Hypochromasia Slight Poikilocytosis Slight Microcytosis Mod Macrocytosis Slight Spherocytes Few Target Cells Occ Ovalocytes Occ Rouleau Present Sodium Level 130 mmol/L (136-145) Potassium Level 4.3 mmol/L (3.5-5.1) Chloride Level 95 mmol/L (98-107) Carbon Dioxide Level 26 mmol/L (21-32) Anion Gap 9 (6-14) Blood Urea Nitrogen 23 mg/dL (8-26) Creatinine 1.0 mg/dL (0.7-1.3) Estimated GFR (Cockcroft-Gault) 70.8 BUN/Creatinine Ratio 23 (6-20) Glucose Level 112 mg/dL (70-99) Calcium Level 8.7 mg/dL (8.5-10.1) Iron Level 7 ug/dL (65-175) Total Iron Binding Capacity 415 ug/dL (250-450) Iron Saturation 2 % (15-34) Ferritin 9 ng/mL (26-388) Total Bilirubin 0.5 mg/dL (0.2-1.0) Aspartate Amino Transf (AST/SGOT) 12 U/L (15-37) Alanine Aminotransferase (ALT/SGPT) 19 U/L (16-63) Alkaline Phosphatase 60 U/L (46-116) Troponin I Quantitative < 0.017 ng/mL (0.000-0.055) Total Protein 6.1 g/dL (6.4-8.2) Albumin 3.4 g/dL (3.4-5.0) Albumin/Globulin Ratio 1.3 (1.0-1.7) Stool Occult Blood Positive (NEG) Images Images Ct a/p with apple core lesion Assessment/Plan Assessment/Plan colon cancer with associated anemia. D/w pt and pt's supportive family suspected diagnosis and interventional options, including surgery. Concern with not intervening would risk obstruction or worsening anemia. Pt reports not interested in intervention, supported by family. Would consider palliative care consult. Certainly, would remain available, if pt wishes to pursue interventions. Thanks for consult! SOTERO PRICE MD Mar 03, 2019 13:04
[2019-03-03] MEDS ORDERED: IRON SUCROSE COMPLEX 500 MG in IV NORMAL SALINE 250ML 250 ML IV ONE (14:00)
[2019-03-03 15:00] VITALS: BP 150/59
[2019-03-03 15:30] LABS: HEMATOCRIT 25.7 % (39.0-53.0); HEMOGLOBIN 8.2 g/dL (13.0-17.5)
--- NOTE | 2019-03-03 16:17 | NUR ---
7A -1600 Multiple discussion w numerous MDs on Dx findings and Rx of apple core lesion in sigmoid colon. Explained "probable good prognosis" but patient refuses to have done sating "age" as an issue. 1 unit PRBC followed by IV iron(level 7) Adamant about going home. PT/OT in w increasing steadiness during day noted each time up.
--- NOTE | 2019-03-03 18:11 | NUR ---
Dr Thompson in. Plans to keep patient till am but has made his mind up to 1) NOT have surgery 2) Not get colonoscopy or other invasive procedure3) not re enter hospital. Will follow up w primary care after home and his [place] ,Dr Horvath on continue /discontinue of eliquis.Left before discharge papers complete. Less fatigue/stronger ,diminished SOA.To car per W/C with needed instructions
[2019-03-03] MEDS ORDERED: LISINOPRIL 5 MG TABLET. PO SCH (21:00)
[2019-03-03] MEDS ORDERED: ATORVASTATIN CALCIUM 20 MG TABLET PO SCH (21:00)
--- NOTE | 2019-03-03 23:40 | CONS ---
DATE OF CONSULTATION: 03/03/2019 MEDICAL ONCOLOGY CONSULTATION REPORT REQUESTING PHYSICIAN: Sheyla Rodriguez M.D. REASON FOR CONSULTATION: Suspected colon cancer. HISTORY OF PRESENT ILLNESS: The patient is an 88-year-old gentleman, who has a 2-week history of fatigue, weakness, dizziness and bright red blood in the stools that prompted him to see his primary care physician and sent to [facility] for further evaluation. The patient was noted to have iron-deficiency anemia with a hemoglobin of 6.4 and then up to 7.1 after 1 unit of PRBC transfusion. His hemoglobin was 12 in 10/2018. The patient is on anticoagulation with aspirin and Eliquis for management of atrial fibrillation. No loss of weight or loss of appetite. No change in bowel habits. He underwent further evaluation with a CT abdomen and pelvis on 03/02/2019 that revealed apple-core lesion in the proximal sigmoid colon suspicious for adenocarcinoma. I was asked to see the patient for further recommendations. PAST MEDICAL HISTORY: Atrial fibrillation, hypertension, hyperlipidemia, skin cancer, cataract removal and pacemaker. FAMILY HISTORY: Positive for breast cancer. SOCIAL HISTORY: No smoking or alcohol abuse. REVIEW OF SYSTEMS: A 12-point review of system was performed. Pertinent positives are mentioned in the history of present illness. Rest of the system review is negative. PHYSICAL EXAMINATION: GENERAL APPEARANCE: The patient is an 88-year-old gentleman, who is in no acute cardiorespiratory distress. VITAL SIGNS: Blood pressure 130/65 and temperature 98 degrees. HEENT: Atraumatic and normocephalic. EYES: No icterus. NECK: Supple. CHEST: Bilaterally symmetrical. No crepitations or rhonchi heard. HEART: S1, S2 normal. ABDOMEN: Soft, nontender. CENTRAL NERVOUS SYSTEM: No focal deficits. LYMPHATICS: No lymphadenopathy. SKIN: No rashes. PSYCHOLOGIC: Mood and affect are appropriate. LABORATORY DATA: On 03/02/2019, WBC 6.1, hemoglobin 6.4, MCV 73 and platelet count 254. Creatinine 1.0. Iron 7, TIBC 415, iron saturation is 2 and ferritin is 9. IMPRESSION AND PLAN: 1. 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 He has not had a colonoscopy or biopsy yet. I explained to the patient that the scan is concerning for malignancy and I recommended a colonoscopy and surgery. He mentions that considering his advanced age, he does not want to pursue with colonoscopy or surgery. I did mention to him and explained to him that if left alone, this would put him at a high risk for obstruction and bleeding and worsening anemia, which may compromise his quality of life and hence it would be better to proceed with surgery to prevent complications from the malignancy and to help maintain a good quality of life for the rest of the time he has. He understands, but he is still not comfortable to pursue with any further investigation or surgery. Appreciate Surgical consultation and GI consultation. 2. 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 He received 1 unit of packed red blood cell transfusion on 03/02/2019. Hemoglobin improved from 6.4 to 7.1. I will order 1 dose of Venofer 03/03/19. RADHA PEGUERO MD DR: RENATA/jia JOB#: [id number] / [id number] JERI
== END 2019-03-03 18:00 | disposition left against medical advice (07) | DRG 375 ==
LOC: ER 17:14 → 2 SOUTH 20:42
PROVIDERS: ADMIT Internal Medicine; ATTEND Internal Medicine
PROC: 30233N1 Transfusion of Nonautologous Red Blood Cells into Peripheral Vein, Percutaneous Approach (ICD-10-PCS; principal; 2019-03-02)
DX: C18.7 Malignant neoplasm of sigmoid colon (principal); K92.2 Gastrointestinal hemorrhage, unspecified; E87.1 Hypo-osmolality and hyponatremia; J90 Pleural effusion, not elsewhere classified; D50.9 Iron deficiency anemia, unspecified; D63.0 Anemia in neoplastic disease; E78.00 Pure hypercholesterolemia, unspecified; E78.5 Hyperlipidemia, unspecified; I10 Essential (primary) hypertension; I48.91 Unspecified atrial fibrillation; Z66 Do not resuscitate; Z79.01 Long term (current) use of anticoagulants; Z80.3 Family history of malignant neoplasm of breast; Z82.49 Family history of ischemic heart disease and other diseases of the circulatory system; Z85.038 Personal history of other malignant neoplasm of large intestine; Z85.828 Personal history of other malignant neoplasm of skin; Z79.899 Other long term (current) drug therapy; Z53.21 Procedure and treatment not carried out due to patient leaving prior to being seen by health care provider
CPT/HCPCS: 36415; 74177; 80053; 82274; 82728; 83540; 83550; 84484; 85014; 85018; 85025; 86850; 86900; 86901; 86920; 93005; 96374; C9113; J1756; J7030; J7050; P9016; Q9967; 97110; 97116; 99285-25